=== PATIENT | female | born 1985 | race Asian ===

== ENCOUNTER 2018-07-20 17:31 | Inpatient (IN) | payer MEDICAID, OTHER, SELFPAY ==
[~2018-07-20 17:31] MED LIST: Lidocaine 2% MPF 10 ML AMP (For Epidural Use) ONE
[2018-07-21] MEDS ORDERED: Diphenoxylate HCl/Atropine Tablet PO PRN (06:06)
[2018-07-21] MEDS ORDERED: Lidocaine 1% (PF) 30 ML VIAL SC PRN (06:06)
[2018-07-21] MEDS ORDERED: HYDROcodone/Acetaminophen 5/325 mg Tablet PO PRN ×3 (06:06→14:16)
[2018-07-21] MEDS ORDERED: Ondansetron PF 4 MG/2 ML Vial IVP PRN ×3 (06:06→14:16)
[2018-07-21] MEDS ORDERED: Ibuprofen 800 MG TAB PO PRN (06:06)
[2018-07-21] MEDS ORDERED: Carboprost 250 MCG/ML AMP IM PRN (06:06)
[2018-07-21] MEDS ORDERED: NS w/ Oxytocin 10 units 500 ML IV SCH ×2 (06:06)
[2018-07-21] MEDS ORDERED: Butorphanol Tartrate 1 MG/ML VIAL SLOW IVP PRN (06:06)
[2018-07-21] MEDS ORDERED: Misoprostol 200 MCG TAB PR PRN (06:06)
[2018-07-21] MEDS ORDERED: Methylergonovine 0.2 MG/ML VIAL IM PRN (06:06)
[2018-07-21 06:18] VITALS: BMI 26.1
[2018-07-21] MEDS: Lactated Ringer's 1,000 ML IV SCH ×2 (06:40→11:22)
[2018-07-21 07:11] LABS: Hemoglobin 13.8 g/dL (12.0-16.0); Mean Corpuscular HGB CONC 33.6 g/dL (32.0-36.0); Mean Corpuscular Hemoglobin 31.7 pg (27.0-31.0); Mean Corpuscular Volume 94.3 fL (78.0-98.0); Mean Platelet Volume 9.1 fL (7.4-10.4); Platelet Count 191 thou/uL (130-400); RBC Distribution Width 13.2 % (11.5-14.5); Red Blood Cell (RBC) Count 4.37 mill/uL (4.20-5.40); White Blood Cell (WBC) Count 7.4 thou/uL (4.8-10.8)
[2018-07-21 07:51] LABS: Syphilis Antibody Nonreactive (Nonreactive); Syphilis Antibody Index 0.06 S/CO (<1.00 Non-Reactive)
[2018-07-21 07:52] LABS: HBSAg Index 0.25 S/CO (0-0.99); Hep B Surf Ag Non-Reactive S/CO (NonReactive)
[2018-07-21] MEDS ORDERED: Fentanyl 4 mcg/Bup 0.1% Cadd 100 ML ONE (09:04)
[2018-07-21] MEDS ORDERED: Naloxone HCl 0.4 mg/ml Vial IVP PRN ×2 (10:21)
[2018-07-21] MEDS ORDERED: diphenhydrAMINE 50 MG/ML VIAL IVP PRN (10:21)
[2018-07-21] MEDS ORDERED: Lactated Ringer's 500 ML IV PRN (10:21)
[2018-07-21] MEDS ORDERED: ePHEDrine/0.9% NaCl/PF SYRINGE 50 mg/10 ml SLOW IVP PRN (10:21)
[2018-07-21] MEDS ORDERED: Acetaminophen 325 MG TAB PO PRN (10:21)
[2018-07-21] MEDS ORDERED: Promethazine HCl 25 MG/ML VIAL IM PRN (10:21)
[2018-07-21] MEDS ORDERED: Eucerin (Mineral Oil/Petrolatum,White) 30 gm Jar TOP PRN (10:21)
[2018-07-21] MEDS ORDERED: Communication Order-Pharmacy FS SCH (10:30)
[2018-07-21] MEDS ORDERED: Fentanyl 4 mcg/Bupivacaine 0.1% Cassette 100 ML EPIDURAL SCH (10:30)
[2018-07-21] MEDS: NS / Oxytocin 40 units/1000ml 1,000 ML IV PRN ×2 (12:56→14:14)
[2018-07-21] MEDS ORDERED: Benzocaine/Menthol 20-0.5% 60 ML CAN TOP PRN (14:16)
[2018-07-21] MEDS ORDERED: NS / Oxytocin 40 units/1000ml 1,000 ML IV SCH (14:16)
[2018-07-21] MEDS ORDERED: Lanolin Ointment 7 GM TUBE TOP PRN (14:16)
[2018-07-21] MEDS ORDERED: Bisacodyl 10 MG SUPP PR PRN (14:16)
[2018-07-21] MEDS ORDERED: diphenhydrAMINE 25 MG CAP PO PRN (14:16)
[2018-07-21] MEDS ORDERED: Milk Of Magnesia 30 ML UDCUP PO PRN (14:16)
[2018-07-21] MEDS: Ibuprofen 800 MG TAB PO SCH ×2 (17:17→21:28)
[2018-07-21] MEDS: Ferrous Sulfate 325 MG TAB PO SCH (17:18)
[2018-07-21] MEDS: Docusate Calcium (SURFAK) 240 MG CAP PO SCH (21:28)
[2018-07-22] MEDS: Ibuprofen 800 MG TAB PO SCH ×2 (05:13→13:53)
[2018-07-22 07:26] LABS: Hemoglobin 10.8 g/dL (12.0-16.0); Mean Corpuscular HGB CONC 33.6 g/dL (32.0-36.0); Mean Corpuscular Hemoglobin 31.9 pg (27.0-31.0); Mean Corpuscular Volume 94.9 fL (78.0-98.0); Mean Platelet Volume 8.6 fL (7.4-10.4); Platelet Count 170 thou/uL (130-400); RBC Distribution Width 13.2 % (11.5-14.5); Red Blood Cell (RBC) Count 3.37 mill/uL (4.20-5.40); White Blood Cell (WBC) Count 9.4 thou/uL (4.8-10.8)
[2018-07-22] MEDS: Ferrous Sulfate 325 MG TAB PO SCH (08:30)
[2018-07-22] MEDS: Docusate Calcium (SURFAK) 240 MG CAP PO SCH (08:30)
[2018-07-22] MEDS ORDERED: Prenatal Vitamin 1 TAB PO SCH (09:00)
[2018-07-22 11:21] VITALS: BP 117/66; TEMP 98
== END 2018-07-22 16:00 | disposition home or self-care (01) | DRG 807 ==
LOC: L&D 07-21 06:02 → 3SW 07-21 15:35
PROVIDERS: ADMIT Family Medicine; ATTEND Family Medicine
PROC: 10E0XZZ Delivery of Products of Conception, External Approach (ICD-10-PCS; principal; 2018-07-21)
PROC: 0KQM0ZZ Repair Perineum Muscle, Open Approach (ICD-10-PCS; 2018-07-21)
PROC: 0UQMXZZ Repair Vulva, External Approach (ICD-10-PCS; 2018-07-21)
PROC: 10907ZC Drainage of Amniotic Fluid, Therapeutic from Products of Conception, Via Natural or Artificial Opening (ICD-10-PCS; 2018-07-21)
PROC: 3E033VJ Introduction of Other Hormone into Peripheral Vein, Percutaneous Approach (ICD-10-PCS; 2018-07-21)
DX: O24.420 Gestational diabetes mellitus in childbirth, diet controlled (principal); O71.82 Other specified trauma to perineum and vulva; O70.1 Second degree perineal laceration during delivery; Z3A.38 38 weeks gestation of pregnancy; Z37.0 Single live birth
CPT/HCPCS: 36415; 36416; 51702; 85027; 86780; 86850; 86900; 86901; 87340; J2001